=== PATIENT | male | born 1990 | race Caucasian/White ===

== ENCOUNTER 2023-03-19 00:56 | Emergency (ER) | payer MEDICAID, OTHER ==
[~2023-03-19] VITALS: Ht 180.3 cm; Wt 100.8 kg
[2023-03-19 01:56] VITALS: BP 132/87; PULSE 87; RESP 18; TEMP 97.7
[2023-03-19] MEDS ORDERED: AUG875T PO (04:29)
[2023-03-19 04:53] VITALS: O2SAT 98
[2023-03-19] MEDS: KETOROLAC TROMETH 60MG/2ML VIAL IM ONE (05:23)
[2023-03-19] MEDS ORDERED: AMOX500C2 PO (05:55)
== END 2023-03-19 05:58 | disposition home or self-care (01) ==
LOC: ER 00:56
DX: J32.9 Chronic sinusitis, unspecified (principal); R51.9 Headache, unspecified; Z88.1 Allergy status to other antibiotic agents
CPT/HCPCS: 96372; 99283; J1885